=== PATIENT | female | born 1940 | race African-American/Black ===

== ENCOUNTER 2019-01-06 13:32 | Emergency (ER) | payer OTHER ==
[~2019-01-06] VITALS: Ht 160 cm; Wt 66.7 kg
[~2019-01-06 13:32] MED LIST: ACETAMINOPHEN-1 EAC1 PO; ADULT LOW DOSE81 MG PO; NEPHROCAPS SOFT1 CAP PO
[2019-01-06 15:00] VITALS: BP 110/64
== END 2019-01-06 15:00 | disposition home or self-care (01) ==
LOC: ER 13:32
DX: S01.81XA Laceration without foreign body of other part of head, initial encounter (principal); W22.8XXA Striking against or struck by other objects, initial encounter; Y93.89 Activity, other specified; Y92.89 Other specified places as the place of occurrence of the external cause; Y99.8 Other external cause status